=== PATIENT | male | born 1990 | race Caucasian/White ===

== ENCOUNTER 2019-10-06 10:01 | Emergency (ER) | payer SELFPAY ==
[2019-10-06] MEDS ORDERED: Diphtheria,Pertussis(Acell),Tetanus Vaccine 0.5 ML Syringe IM ONE (10:31)
--- NOTE | 2019-10-06 10:31 | EDM.PDOC ---
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 He denies any other injuries. Onset: Sudden Location: Reports: Upper Extremity, Right Severity: Mild left hand Pain Score (Numeric/FACES): 3 right hand Pain Score (Numeric/FACES): 3 - Related Data Allergies Allergy/AdvReac Type Severity Reaction Status Date / Time No Known Allergies Allergy Verified 10/06/19 10:19 Home Meds: Home Meds Cephalexin [Keflex] 500 mg PO BID 5 Days #10 capsule 10/06/19 [Rx] Past Medical History - Past Health History Medical/Surgical History: Denies Medical/Surgical History - Infectious Disease History Infectious Disease History: Reports: Chicken Pox Social & Family History - Tobacco Use Smoking Status *Q: Current Every Day Smoker Years of Tobacco use: 10 Packs/Tins Daily: 0.1 ED ROS GENERAL - Review of Systems Review Of Systems: See Below Constitutional: Reports: No Symptoms HEENT: Reports: No Symptoms Respiratory: Reports: No Symptoms Cardiovascular: Reports: No Symptoms GI/Abdominal: Reports: No Symptoms Musculoskeletal: Reports: Other (cut on right hand) Skin: Reports: Other (cut on right hand) Neurological: Reports: No Symptoms ED EXAM, SKIN/RASH Exam: See Below Exam Limited By: No Limitations General Appearance: Alert, WD/WN, No Apparent Distress Ears: Normal External Exam, Normal Canal, Hearing Grossly Normal, Normal TMs Nose: Normal Inspection, Normal Mucosa, No Blood Head: Atraumatic, Normocephalic Neck: Normal Inspection, Supple, Non-Tender, Full Range of Motion Respiratory/Chest: No Respiratory Distress, Lungs Clear, Normal Breath Sounds, No Accessory Muscle Use, Chest Non-Tender Cardiovascular: Normal Peripheral Pulses, Regular Rate, Rhythm, No Edema, No Gallop, No JVD, No Murmur, No Rub Peripheral Pulses: 3+: Brachial (L), Brachial (R), Radial (L), Radial (R) GI/Abdominal: Normal Bowel Sounds, Soft, Non-Tender (Male) Exam: Deferred Rectal (Males) Exam: Deferred Back Exam: Normal Inspection, Full Range of Motion, NT Extremities: Other (Right hand is a 1.5cm superficial laceration medial base of right 5th finer. Neuro/Vasc intact.) Neurological: Alert, Oriented, CN II-XII Intact Skin: Other (1.5cm laceration noted right 5th finger area as stated above.) ED SKIN PROCEDURES - Laceration/Wound Repair Right Hand Appearance: Superficial, Mildly Contaminated Distal NVT: Neuro & Vascular Intact, No Tendon Injury Anesthetic Type: Local Local Anesthesia - Lidocaine (Xylocaine): 1% Plain Local Anesthetic Volume: 2cc Skin Prep: Providone-Iodine (Betadine) Exploration/Debridement/Repair: Wound Explored, In a Bloodless Field Closed with: Sutures Lac/Wound length In cm: 1.5 Suture Size: 4-0 # of Sutures: 3 Suture Type: Nylon, Interrupted Tetanus Status Addressed: Yes (Tetanus given) Complications: No Course - Vital Signs Last Recorded V/S: Last Vital Signs Temp 97.5 F 10/06/19 10:17 Pulse 68 10/06/19 10:17 Resp 16 10/06/19 10:17 BP 107/58 L 10/06/19 10:17 Pulse Ox 95 10/06/19 10:17 - Orders/Labs/Meds Orders: Active Orders 24 hr Category Date Time Status Vaccines to be Administered [RC] PER UNIT ROUTINE Care 10/06/19 10:31 Active Hand 2V Rt [CR] Stat Exams 10/06/19 10:29 Ordered Meds: Medications Discontinued Medications Generic Name Dose Route Start Last Admin Trade Name Freq PRN Reason Stop Dose Admin Cephalexin 500 mg 10/06/19 11:30 Keflex PO 10/06/19 11:31 ONETIME ONE Diphtheria/Tetanus/Acell Pertussis 0.5 ml 10/06/19 10:31 10/06/19 10:39 Adacel IM 10/06/19 10:32 0.5 ml .ONCE ONE Administration Lidocaine HCl 5 ml 10/06/19 10:59 10/06/19 11:06 Xylocaine-Mpf 1% INJECT 10/06/19 11:00 5 ml ONETIME ONE Administration Departure - Departure Time of Disposition: 11:36 Disposition: Home, Self-Care 01 Condition: Good Clinical Impression: Laceration of right hand Qualifiers: Encounter type: initial encounter Foreign body presence: without foreign body Qualified Code(s): S61.411A - Laceration without foreign body of right hand, initial encounter - Discharge Information *PRESCRIPTION DRUG MONITORING PROGRAM REVIEWED*: Yes *COPY OF PRESCRIPTION DRUG MONITORING REPORT IN PATIENT ALLA: Yes Instructions: Laceration Care, Adult, Sutured Wound Care, [id number] Referrals: PCP,None [Primary Care Provider] - Forms: ED Department Discharge Additional Instructions: Take all medications as directed. Wound care as on handout. Be sure to keep wound clean and dry. Have sutures removed in 10-12 days. Return to the ED if you cannot find someone to remove your sutures and be sure to have your wound checked in 4-5 days. The following information is given to patients seen in the emergency department who are being discharged to home. This information is to outline your options for follow-up care. We provide all patients seen in our emergency department with a follow-up referral. The need for follow-up, as well as the timing and circumstances, are variable depending upon the specifics of your emergency department visit. If you don't have a primary care physician on staff, we will provide you with a referral. We always advise you to contact your personal physician following an emergency department visit to inform them of the circumstance of the visit and for follow-up with them and/or the need for any referrals to a consulting specialist. The emergency department will also refer you to a specialist when appropriate. This referral assures that you have the opportunity for follow-up care with a specialist. All of these measure are taken in an effort to provide you with optimal care, which includes your follow-up. Under all circumstances we always encourage you to contact your private physician who remains a resource for coordinating your care. When calling for follow-up care, please make the office aware that this follow-up is from your recent emergency room visit. If for any reason you are refused follow-up, please contact the [facility] Emergency Department at and asked to speak to the emergency department charge nurse. Sepsis Event Note - Evaluation Sepsis Screening Result: No Definite Risk - Focused Exam Vital Signs: Vital Signs Temp Pulse Resp BP Pulse Ox 10/06/19 10:17 97.5 F 68 16 107/58 L 95 Date Exam was Performed: 10/06/19 Time Exam was Performed: 11:36 - My Orders Last 24 Hours: My Active Orders 10/06/19 10:29 Hand 2V Rt [CR] Stat - Assessment/Plan Last 24 Hours: My Active Orders 10/06/19 10:29 Hand 2V Rt [CR] Stat
[2019-10-06] MEDS ORDERED: Cephalexin 500 MG Cap PO ONE (11:30)
--- NOTE | 2019-10-06 11:42 | CR ---
Right hand: 2 views of the right hand were obtained. Comparison: No previous hand exam. Small calcification is noted off the distal ulnar styloid. This is believed to be old. Small metallic foreign body projected within the soft tissues of the third digit which appears to be old. No acute fracture or other bony abnormality is appreciated. Impression: 1. Findings as noted above. 2. No acute bony abnormality is appreciated. Diagnostic code #2 This report was dictated in [place] Standard Time
== END 2019-10-06 11:57 | disposition home or self-care (01) ==
LOC: MW.ED 10:01
DX: S61.411A Laceration without foreign body of right hand, initial encounter (principal); Z23 Encounter for immunization; F17.210 Nicotine dependence, cigarettes, uncomplicated; W26.8XXA Contact with other sharp object(s), not elsewhere classified, initial encounter
CPT/HCPCS: 12001; 73120; 90471; 90715; 99283; A9270; J2001